=== PATIENT | male | born 1965 | race Asian ===

== ENCOUNTER 2017-11-16 17:14 | Emergency (ER) | payer OTHER ==
[~2017-11-16 17:14] MED LIST: CHLO.12%30 SSP; IBUP800T23 PO; PENI500T PO
[2017-11-16 17:15] VITALS: BP 140/98; PULSE 89; RESP 18; TEMP 98.7; O2SAT 99
--- NOTE | 2017-11-16 19:23 | PD ---
HPI Chief Complaint: Skin Problem Time Seen by Provider: 19:13 Travel History International Travel<30 days: No Contact w/Intl Traveler<30days: No Traveled to known affect area: No History of Present Illness HPI The patient is 52 year old male who presents to the [facility] emergency department with a history of noticing a small bump on the left side/ lower flank 2 months ago. It gradually increased in size. It did not hurt at first. Now when riding his bike it hurts. He has intermittent sharp jabbing pain that sometimes radiates into his stomach. The patient denies any history of fever, cough, congestion, neck pain, chest pain, shortness of breath, vomiting, diarrhea, urinary symptoms, or neurologic symptoms. He denies night sweats. He reports weight loss of 10 lbs over the 2 months. His last BM was yesterday. He denies having blood in his stool. He denies ever having a colonoscopy. PFSH Past Medical History Narrative Medical The patient's past medical history is reportedly none. Medical History: Denies Significant Hx Diminished Hearing: No Immunizations Current: Yes Past Surgical History Narrative Surgical The patient's past surgical history significant for a splenectomy, lumbar surgery 2-3x after impaling injury at work in 1998. Abdominal Surgery: Yes (SPLEENECTOMY 1999) Family History Family History: Negative Social History Alcohol Use: No Tobacco Use: Yes (5 cigs per day) Substance Use: Yes (MARIJAUNA) Allergies-Medications (Allergen,Severity, Reaction): Coded Allergies: morphine (Unverified Adverse Reaction, Severe, N/V, 06/15/17) N/V Reported Meds & Prescriptions Reported Meds & Active Scripts Active Review of Systems Except as stated in HPI: all other systems reviewed are Neg General / Constitutional: Positive: Weight Loss, No: Fever Eyes: No: Visual changes HENT: No: Headaches Cardiovascular: No: Chest Pain or Discomfort Respiratory: No: Shortness of Breath Gastrointestinal: Positive: Abdominal Pain, No: Nausea, Vomiting, Diarrhea Genitourinary: No: Dysuria Musculoskeletal: Positive: Myalgias, No: Pain Skin: No Rash Neurologic: No: Weakness, Focal Abnormalities, Change in Mentation, Slurred Speech, Sensory Disturbance Psychiatric: No: Depression Endocrine: No: Polydipsia Hematologic/Lymphatic: No: Easy Bruising Physical Exam Narrative General: The patient is a well-developed thin appearing male in no acute distress. Head and Neck exam: Head is normocephalic atraumatic. Eyes: EOMI, pupils are equal round and reactive to light. Nose: Midline septum with pink mucous membranes Mouth: Dentition unremarkable. Moist mucus membranes. Posterior oropharynx is not erythematous. No tonsillar hypertrophy. Uvula midline. Airway patent. Neck: No palpable lymphadenopathy. No nuchal rigidity. No thyromegaly. Cardiovascular: Regular rate and rhythm without murmurs, gallops, or rubs. Lungs: Clear to auscultation bilaterally. No wheezes, rhonchi, or rales. Abdomen: Soft, tenderness on palpation along the left upper and left lower quadrant of the abdomen with mass noted along the flank just above the iliac crest on the left side. This is approximately 8 cm in greatest dimension, circular, firm to palpation, and nonmobile. There is no fluctuance. There is no overlying erythema or edema. The patient reports that it is tender to palpation. No guarding, rebound, or rigidity. Negative Hutton sign. The patient has left inguinal lymphadenopathy palpated. No other adenopathy palpated. Extremities: No clubbing, cyanosis, or edema. 2+ pulses in all 4 extremities. No calf tenderness on palpation. Back: No spinous process tenderness to palpation. No costovertebral angle tenderness to palpation. Neurologic Exam: Grossly nonfocal. Skin Exam: No rash noted. Intact skin that is warm and dry. Data Data Last Documented VS Vital Signs Date Time Temp Pulse Resp B/P (MAP) Pulse Ox O2 Delivery O2 Flow Rate FiO2 11/17/17 00:03 11/16/17 19:59 16 99 Room Air 11/16/17 17:15 98.7 89 Orders Orders Electrocardiogram (11/16/17 19:31) Complete Blood Count With Diff (11/16/17 19:31) Comprehensive Metabolic Panel (11/16/17 19:31) Prothrombin Time / Inr (Pt) (11/16/17 19:31) Act Partial Throm Time (Ptt) (11/16/17 19:31) C-Reactive Protein (Crp) (11/16/17 19:31) Lipase (11/16/17 19:31) Chest, Single Ap (11/16/17 19:31) Ct Abd/Pel W Iv Contrast(Rout) (11/16/17 19:31) Iv Access Insert/Monitor (11/16/17 19:31) Ecg Monitoring (11/16/17 19:31) Oximetry (11/16/17 19:31) Sodium Chlorid 0.9% 500 Ml Inj (Ns 500 M (11/16/17 21:45) Ketorolac Inj (Toradol Inj) (11/16/17 21:45) Iohexol 350 Inj (Omnipaque 350 Inj) (11/16/17 22:46) Ed Discharge Order (11/17/17 00:00) Labs Laboratory Tests Test 11/16/17 19:55 White Blood Count 8.2 TH/MM3 Red Blood Count 4.59 MIL/MM3 Hemoglobin 14.8 GM/DL Hematocrit 43.7 % Mean Corpuscular Volume 95.2 FL Mean Corpuscular Hemoglobin 32.3 PG Mean Corpuscular Hemoglobin Concent 33.9 % Red Cell Distribution Width 13.3 % Platelet Count 475 TH/MM3 Mean Platelet Volume 7.8 FL Neutrophils (%) (Auto) 46.2 % Lymphocytes (%) (Auto) 40.5 % Monocytes (%) (Auto) 9.8 % Eosinophils (%) (Auto) 2.1 % Basophils (%) (Auto) 1.4 % Neutrophils # (Auto) 3.8 TH/MM3 Lymphocytes # (Auto) 3.3 TH/MM3 Monocytes # (Auto) 0.8 TH/MM3 Eosinophils # (Auto) 0.2 TH/MM3 Basophils # (Auto) 0.1 TH/MM3 CBC Comment DIFF FINAL Differential Comment Prothrombin Time 10.0 SEC Prothromb Time International Ratio 1.0 RATIO Activated Partial Thromboplast Time 27.8 SEC Blood Urea Nitrogen 15 MG/DL Creatinine 0.95 MG/DL Random Glucose 96 MG/DL Total Protein 7.3 GM/DL Albumin 3.2 GM/DL Calcium Level 8.4 MG/DL Alkaline Phosphatase 124 U/L Aspartate Amino Transf (AST/SGOT) 62 U/L Alanine Aminotransferase (ALT/SGPT) 101 U/L Total Bilirubin 0.4 MG/DL Sodium Level 139 MEQ/L Potassium Level 4.4 MEQ/L Chloride Level 106 MEQ/L Carbon Dioxide Level 26.1 MEQ/L Anion Gap 7 MEQ/L Estimat Glomerular Filtration Rate 84 ML/MIN C-Reactive Protein LESS THAN 0.29 MG/DL Lipase 128 U/L MDM Medical Decision Making Medical Screen Exam Complete: Yes Emergency Medical Condition: Yes Medical Record Reviewed: Yes Interpretation(s) Last Impressions Chest X-Ray 11/16/171930 Signed Impressions: Service Date/Time: Thursday, November 16, 2017 19:46 - CONCLUSION: No acute disease. Ameya Kebede Jr., MD Abdomen/Pelvis CT 11/16/171930 Signed Impressions: Service Date/Time: Thursday, November 16, 2017 22:35 - CONCLUSION: 1. No acute abnormality or discernible mass. 2. Prior splenectomy. 3. Emphysematous changes. Ameya Kebede Jr., MD ADDENDUM: I have been asked to review this study. There is a hernia seen at the posterior lateral lower abdomen just above the iliac crest on the left side containing a portion of the descending colon. The colon is not thickened. Dilatation of the colon above and below this hernia is not seen. The patient does have a remote history of prior trauma which may have predisposed the patient to this hernia. The opening of the hernia measures approximately 2.6 cm. Fredis Medina MD Differential Diagnosis Sarcoma, versus large lipoma, versus other mass, versus hernia Narrative Course During the course of the patients emergency department visit, the patients history, examination, and differential diagnosis were reviewed with the patient. The patient was placed on a youth nutritional monitor with oximetry and frequent blood pressure monitoring. The patient had IV access obtained and blood work sent for analysis. The patient had an EKG done on arrival that shows a normal sinus rhythm heart rate of 60, no acute ST segment elevation, T waves are inverted in V1, V2. A CT scan of the abdomen and pelvis with IV contrast has been ordered. The patient was initially provided Toradol 15 mg IV for pain, normal saline at 500 mL bolus. The patient does reexamine his sleeping soundly. The patient was not no acute distress. The patients laboratory studies were reviewed and remarkable for a white count of 8.2, hemoglobin 14.8, platelets 475 with 9.8 monocytes, CMP as remarkable for a GFR of 84, calcium 8.4, AST 62, ALT 101, alk phos 124, C-reactive protein less than 0.29, lipase 128, PT PTT within normal limits. Radiology studies were reviewed and remarkable for a chest x-ray that showed no acute abnormality. CT scan of the abdomen pelvis initially with red by Dr. Kebede as showing no acute abnormality or discernible mass I called to speak to the radiologist international freight forwarder who who his Dr. Medina. He reviewed the CT scan with me along with the patient's clinical examination findings. Review of the CT revealed to him that the patient has a hernia at the posterior lateral lower abdomen just above the iliac crest on the left side containing a portion of the descending colon. The colon is not thickened. Dilatation of the colon above the below the hernia is not which may have predisposed the patient to this hernia. The opening of the hernia measures approximately 2.6 cm. I spoke to the general surgeon international freight forwarder at 23:08 regarding this patient's case. He did agree to see the patient on as an outpatient follow-up to schedule hernia repair. The patient is resting comfortably and feels better, is alert and in no distress. The patients results and examination findings were discussed with the patient. The repeat examination is unremarkable and benign. The history, exam, diagnostic testing, and current condition do not suggest any significant pathology to warrant further testing, continued ED treatment, admission, or surgical evaluation at this point. The vital signs have been stable. The patient does not have uncontrollable pain, intractable vomiting, or other significant symptoms. The patient's condition is stable and appropriate for discharge. The patient will pursue further outpatient evaluation with a primary care physician or other designated or consulting physician as indicated in the discharge instructions. The patient expressed understanding and was agreeable with this plan. Physician Communication Physician Communication The patient's case including history, pertinent physical examination findings, and laboratory studies were discussed with Dr. Tsai, the general surgeon. The patient's findings on examination and CT scan of the abdomen and pelvis were reviewed with him as well as the radiologist. The radiologist reports that there are no signs of bowel ischemia or obstruction. The CT scan reveals that this is a hernia. As the patient has no acute distress related to this, the patient on reexamination was sleeping soundly and the patient has a normal white blood cell count with a normal CRP and no vomiting or change in his bowel movements, the patient can be discharged home. told me that he can see him in his office in follow-up on . I did explain this to the patient. Diagnosis Primary Impression: Abdominal hernia Qualified Codes: K45.8 - Other specified abdominal hernia without obstruction or gangrene Referrals: Dick Ornelas MD call for appointment Additional Instructions: Follow-up with the surgeon, , on in his office. Call tomorrow morning for an appointment. Disposition: 01 DISCHARGE HOME Condition: Stable Stacey Rojas MD Nov 16, 2017 19:23
--- NOTE | 2017-11-16 19:58 | RADRPT ---
EXAM DATE/TIME: 11/16/2017 19:46 [facility] COMPARISON: No previous studies available for comparison. INDICATIONS : Chest pain. MEDICAL HISTORY : Smoker. SURGICAL HISTORY : None. ENCOUNTER: Initial ACUITY: 2 months PAIN SCORE: 6/10 LOCATION: Left chest FINDINGS: A single view of the chest demonstrates the lungs to be symmetrically aerated without evidence of mas s, infiltrate or effusion. The cardiomediastinal contours are unremarkable. Osseous structures are intact. Advanced osteoarthritis of the shoulders bilaterally. CONCLUSION: No acute disease. Ameya Kebede Jr., MD on November 16, 2017 at 19:55 Board Certified Radiologist. This report was verified electronically.
[2017-11-16 19:59] VITALS: RESP 16; O2SAT 99
[2017-11-16 20:39] LABS: AUTOMATED NEUTROPHIL # 3.8 TH/MM3 (1.8-7.7); BASOPHIL # 0.1 TH/MM3 (0-0.2); BASOPHIL % 1.4 % (0.0-2.0); EOSINOPHIL # 0.2 TH/MM3 (0-0.4); EOSINOPHIL % 2.1 % (0.0-4.0); HEMATOCRIT 43.7 % (39.0-51.0); HEMOGLOBIN 14.8 GM/DL (13.0-17.0); LYMPH % 40.5 % (9.0-44.0); LYMPHOCYTE # 3.3 TH/MM3 (1.0-4.8); MEAN CELL VOLUME 95.2 FL (80.0-100.0); MEAN CORPUSCULAR HEMOGLOBIN 32.3 PG (27.0-34.0); MEAN CORPUSCULAR HGB CONC 33.9 % (32.0-36.0); MEAN PLATELET VOLUME 7.8 FL (7.0-11.0); MONO % 9.8 % (0.0-8.0); MONOCYTE # 0.8 TH/MM3 (0-0.9); NEUT % 46.2 % (16.0-70.0); PLATELET COUNT 475 TH/MM3 (150-450); RED BLOOD COUNT 4.59 MIL/MM3 (4.50-5.90); RED CELL DISTRIBUTION WIDTH 13.3 % (11.6-17.2); WHITE BLOOD COUNT 8.2 TH/MM3 (4.0-11.0)
[2017-11-16 21:04] LABS: ALKALINE PHOSPHATASE 124 U/L (45-117); ALT (GPT) 101 U/L (12-78); C-REACTIVE PROTEIN LESS THAN 0.29 MG/DL (0.00-0.30); TOTAL BILIRUBIN ADULT 0.4 MG/DL (0.2-1.0); TOTAL PROTEIN 7.3 GM/DL (6.4-8.2)
[2017-11-16 21:39] LABS: ALBUMIN 3.2 GM/DL (3.4-5.0); AST (GOT) 62 U/L (15-37); BICARBONATE 26.1 MEQ/L (21.0-32.0); BLOOD UREA NITROGEN 15 MG/DL (7-18); CALCIUM 8.4 MG/DL (8.5-10.1); CHLORIDE 106 MEQ/L (98-107); CREATININE 0.95 MG/DL (0.60-1.30); GLOMERULAR FILTRATION RATE 84 ML/MIN (>89); GLUCOSE,RANDOM 96 MG/DL (74-106); LIPASE 128 U/L (73-393); SODIUM (NA) 139 MEQ/L (136-145)
[2017-11-16] MEDS ORDERED: KETOROLAC TROMETHAMINE 30 MG/ML (IVP) VIAL IV PUSH ONE (21:45)
[2017-11-16] MEDS ORDERED: SODIUM CHLORID 0.9% 500 ML INJ 500 ML IV ONE (21:45)
[2017-11-16] MEDS ORDERED: IOHEXOL 350 MG/ML 10 ML VIAL (for RAD DIAG) IVCONTRAST ONE (22:46)
--- NOTE | 2017-11-16 22:53 | RADRPT ---
EXAM DATE/TIME: 11/16/2017 22:35 This report includes an Addendum and supersedes previous reports for this exam. [facility] COMPARISON: No previous studies available for comparison. INDICATIONS : Left side abdominal pain with palpable lump present. IV CONTRAST: 80 cc Omnipaque 350 (iohexol) IV ORAL CONTRAST: No oral contrast ingested. RADIATION DOSE: 4.55 CTDIvol (mGy) MEDICAL HISTORY : None SURGICAL HISTORY : Splenectomy. ENCOUNTER: Initial ACUITY: 2 months PAIN SCALE: 8/10 LOCATION: Left abdomen. TECHNIQUE: Volumetric scanning of the abdomen and pelvis was performed. Using automated exposure control and ad justment of the mA and/or kV according to patient size, radiation dose was kept as low as reasonably achievable to obtain optimal diagnostic quality images. DICOM format image data is available electro nically for review and comparison. FINDINGS: LOWER LUNGS: Emphysematous changes within the visualized lung bases. LIVER: Homogeneous density without lesion. There is no dilation of the biliary tree. No calcified gallston es. SPLEEN: Surgically absent. PANCREAS: Within normal limits. KIDNEYS: Normal in size and shape. There is no mass, stone or hydronephrosis. ADRENAL GLANDS: Within normal limits. VASCULAR: There is no aortic aneurysm. BOWEL/MESENTERY: The stomach, small bowel, and colon demonstrate no acute abnormality. There is no free intraperitone al air or fluid. ABDOMINAL WALL: Within normal limits. RETROPERITONEUM: There is no lymphadenopathy. BLADDER: No wall thickening or mass. REPRODUCTIVE: Within normal limits. INGUINAL: There is no lymphadenopathy or hernia. MUSCULOSKELETAL: Fracture posterior fixation screws are seen involving left S1 and right L4. Postsurgical changes invo lve the posterior elements at these levels. CONCLUSION: 1. No acute abnormality or discernible mass. 2. Prior splenectomy. 3. Emphysematous changes. Ameya Kebede Jr., MD on November 16, 2017 at 22:47 Board Certified Radiologist. This report was verified electronically. ADDENDUM: I have been asked to review this study. There is a hernia seen at the posterior lateral lower abdomen just above the iliac crest on the left side containing a portion of the descending colon. The colon is not thickened. Dilatation of the colon above and below this hernia is not seen. The patient does h ave a remote history of prior trauma which may have predisposed the patient to this hernia. The openi ng of the hernia measures approximately 2.6 cm. Fredis Medina MD on November 16, 2017 at 23:04 Board Certified Radiologist. This report was verified electronically.
--- NOTE | 2017-11-17 09:48 | EKG ---
Date Performed: 11/16/2017 Time Performed: 19:57:38 PTAGE: 52 years EKG: Sinus rhythm NORMAL ECG PREVIOUS TRACING : 08/17/2002 11.28 DOCTOR: Domo Miller Interpretating Date/Time 11/17/2017 09:46:41
== END 2017-11-17 | disposition home or self-care (01) ==
LOC: NEPE 17:14
DX: K45.8 Other specified abdominal hernia without obstruction or gangrene (principal); F17.210 Nicotine dependence, cigarettes, uncomplicated; R07.9 Chest pain, unspecified
CPT/HCPCS: 71045; 74177; 80053; 83690; 85025; 85610; 85730; 86140; 93005; 96361; 96374; 99285; J1885; J7040; Q9967

== ENCOUNTER 2017-11-18 09:06 | Emergency (ER) | payer OTHER ==
[~2017-11-18] VITALS: Ht 165.1 cm; Wt 63.5 kg
[2017-11-18 09:15] VITALS: BP 141/101; PULSE 92; RESP 18; TEMP 97.9; O2SAT 97
[2017-11-18] MEDS ORDERED: KETOROLAC TROMETHAMINE 60 MG/2 ML (IM) VIAL IM ONE (09:45)
[2017-11-18] MEDS ORDERED: ONDANSETRON ODT 4 MG TAB PO ONE (09:45)
--- NOTE | 2017-11-18 10:02 | PD ---
HPI Chief Complaint: Abdominal Pain Time Seen by Provider: 09:34 Travel History International Travel<30 days: No Contact w/Intl Traveler<30days: No Traveled to known affect area: No History of Present Illness HPI Patient has a 52-year-old male presents emergency department for evaluation of left-sided abdominal pain associated with a left-sided hernia. Patient states the pain has been going on for approximately 2-3 days, has not changed since then. He weighs here 2 nights ago as evaluated with a CAT scan showing a left suprailiac hernia containing large bowel. As discussed with Dr. Dee Carrera in a patient with supposed to follow-up with Dr. Gabriel today but came here instead because he did not know his post follow-up. Denies any nausea or vomiting fevers blood in the stool. He still been able to eat. PFSH Past Medical History Diminished Hearing: No Immunizations Current: Yes Past Surgical History Abdominal Surgery: Yes (SPLEENECTOMY 1999) Social History Alcohol Use: No Tobacco Use: Yes (5 cigs per day) Substance Use: Yes (MARIJAUNA) Allergies-Medications (Allergen,Severity, Reaction): Coded Allergies: morphine (Unverified Adverse Reaction, Severe, N/V, 06/15/17) N/V Reported Meds & Prescriptions Reported Meds & Active Scripts Active No Active Prescriptions or Reported Medications Review of Systems Except as stated in HPI: all other systems reviewed are Neg Physical Exam Narrative GENERAL: Well-developed, disheveled in no obvious distress SKIN: Focused skin assessment warm/dry. HEAD: Atraumatic. Normocephalic. EYES: Pupils equal and round. No scleral icterus. No injection or drainage. ENT: No nasal bleeding or discharge. Mucous membranes pink and moist. NECK: Trachea midline. No JVD. CARDIOVASCULAR: Regular rate and rhythm. No murmur appreciated. RESPIRATORY: No accessory muscle use. Clear to auscultation. Breath sounds equal bilaterally. GASTROINTESTINAL: Abdomen soft, non-tender, nondistended. No rebound no percussive tenderness, normal active bowel sounds. Hepatic and splenic margins not palpable. Patient has hernia suprailiac almost the mid axillary line fairly soft. No overlying signs of erythema or induration. MUSCULOSKELETAL: No obvious deformities. No clubbing. No cyanosis. No edema. NEUROLOGICAL: Awake and alert. No obvious cranial nerve deficits. Motor grossly within normal limits. Normal speech. PSYCHIATRIC: Appropriate mood and affect; insight and judgment normal. Data Data Last Documented VS Vital Signs Date Time Temp Pulse Resp B/P (MAP) Pulse Ox O2 Delivery O2 Flow Rate FiO2 11/18/17 10:56 16 11/18/17 10:55 11/18/17 09:15 97.9 92 97 Room Air Orders Orders Ketorolac Inj (Toradol Inj) (11/18/17 09:45) Ondansetron Odt (Zofran Odt) (11/18/17 09:45) Ed Discharge Order (11/18/17 10:49) [facility] Medical Decision Making Medical Screen Exam Complete: Yes Emergency Medical Condition: Yes Differential Diagnosis Left flank hernia, bowel obstruction unlikely, strangulation unlikely, entrapment unlikely. Narrative Course Patient roomed in emergency department, he appears well, no sign symptoms to suggest obstruction. His given Toradol, Zofran, with minimal effort the patient 's hernia was reduced after these medications. Discussed needs follow-up with his general surgeon as previously prescribed. Discussed return to ED criteria. He stable for discharge. Diagnosis Primary Impression: Abdominal wall hernia Referrals: Dick Ornelas MD Scripts No Active Prescriptions or Reported Meds Disposition: 01 DISCHARGE HOME Condition: Stable Raymon Rueda MD Nov 18, 2017 10:02
[2017-11-18 10:56] VITALS: RESP 16
== END 2017-11-18 11:07 | disposition home or self-care (01) ==
LOC: NEPD 09:06
DX: K43.9 Ventral hernia without obstruction or gangrene (principal)
CPT/HCPCS: 96372; 99284; J1885